=== PATIENT | male | born 2000 | race African-American/Black ===

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

== ENCOUNTER 2020-12-12 08:32 | Emergency (ER) | payer OTHER ==
[~2020-12-12] VITALS: Ht 172.7 cm; Wt 109.0 kg
[2020-12-12 08:33] VITALS: BP 157/89
[2020-12-12] MEDS ORDERED: FAMO-135 PO (08:37)
[2020-12-12] MEDS ORDERED: CETI10CA2 PO (08:37)
[2020-12-12] MEDS ORDERED: OMEP20CA14 PO (08:37)
[2020-12-12] MEDS ORDERED: EPIN0.3P3 IM (08:44)
[2020-12-12] MEDS ORDERED: P20 MT (08:44)
[2020-12-12] MEDS ORDERED: B50 GT (08:44)
[2020-12-12] MEDS ORDERED: DIPHENHYDRAMINE 50MG CAPSULE PO ONE (08:45)
[2020-12-12] MEDS ORDERED: PREDNISONE 20MG TABLET PO ONE (08:45)
== END 2020-12-12 09:15 | disposition home or self-care (01) ==
LOC: ER 09:11
DX: T78.3XXA Angioneurotic edema, initial encounter (principal); T45.0X5A Adverse effect of antiallergic and antiemetic drugs, initial encounter; T47.0X5A Adverse effect of histamine H2-receptor blockers, initial encounter; Z79.899 Other long term (current) drug therapy; Y92.89 Other specified places as the place of occurrence of the external cause
CPT/HCPCS: 99283; J7512; Q0163